=== PATIENT | male | born 1995 | race Caucasian/White ===

== ENCOUNTER 2018-08-02 14:44 | Emergency (ER) | payer SELFPAY ==
[2018-08-02] MEDS ORDERED: KETOROLAC TROMETHAMINE INJ/PF 30 MG/1 ML SDV IM ONE (15:30)
--- NOTE | 2018-08-02 15:32 | ER Document Report ---
ED Medical Screen (RME) - General Chief Complaint: Chest Pain Stated Complaint: LIGHT HEADED,LEFT ARM/SHOULDER PAIN Time Seen by Provider: 08/02/18 15:25 - HPI Notes: 08/02/18 15:31 Patient is a 22-year-old male with no significant past medical history presents complaining of left lateral chest/axilla area with some tightness to his upper mid chest going up into his neck a couple hours ago that has since improved and resolved. Patient states that he did have associated nausea at that time without vomiting. Patient does report on occasion noticing a lymph node being swollen in his neck over the past couple weeks, but is not currently inflamed. He is eating and drinking without difficulty. Denies BROTHERS, fever, neck pain, URI, SOB, Abd pain, dysuria, back pain, or rash. I have treated and performed a rapid initial assessment of this patient. A comprehensive ED assessment and evaluation of the patient, analysis of test results and completion of medical decision making process will be conducted by additional ED providers. PHYSICAL EXAMINATION: GENERAL: Well-appearing, well-nourished and in no acute distress. A&Ox4. Answers questions appropriately. Neck: no obvious lymphadenopathy. LUNGS: Breath sounds clear to auscultation bilaterally and equal. No wheezes rales or rhonchi. HEART: Regular rate and rhythm without murmurs, rubs, gallops. Extremities: No cyanosis, clubbing, or edema b/l. NEUROLOGICAL: Normal speech, normal gait. PSYCH: Normal mood, normal affect. - Related Data Allergies/Adverse Reactions: amoxicillin Allergy (Verified 08/02/18 14:49) Past Medical History - Social History Frequency of alcohol use: None Drug Abuse: None Renal/ Medical History: Denies: Hx Peritoneal Dialysis Physical Exam - Vital signs Vitals: Temp Pulse Resp BP Pulse Ox 98.9 F 70 16 129/77 H 99 08/02/18 15:00 08/02/18 15:00 08/02/18 15:00 08/02/18 15:00 08/02/18 15:00 Course - Vital Signs Vital signs: Temp Pulse Resp BP Pulse Ox 98.9 F 70 16 129/77 H 99 08/02/18 15:00 08/02/18 15:00 08/02/18 15:00 08/02/18 15:00 08/02/18 15:00
--- NOTE | 2018-08-02 16:11 | RADIOLOGY REPORT (SQ) ---
EXAM DESCRIPTION: CHEST SINGLE VIEW COMPLETED DATE/TIME: 08/02/2018 3:49 pm REASON FOR STUDY: left lateral chest pain COMPARISON: None. NUMBER OF VIEWS: One view. TECHNIQUE: Single frontal radiographic view of the chest acquired. LIMITATIONS: None. FINDINGS: LUNGS AND PLEURA: No opacities, masses or pneumothorax. No pleural effusion. MEDIASTINUM AND HILAR STRUCTURES: No masses. Contour normal. HEART AND VASCULAR STRUCTURES: Heart normal in size. Normal vasculature. BONES: No acute findings. HARDWARE: None in the chest. OTHER: No other significant finding. IMPRESSION: NO SIGNIFICANT RADIOGRAPHIC FINDING IN THE CHEST. TECHNICAL DOCUMENTATION: JOB ID: [id number] [employer]- All Rights Reserved Reading location - IP/workstation name: [email or web address]
[2018-08-02 16:47] LABS: ABSOLUTE EOSINOPHILS # (AUTO) 0.3 10^3/uL (0.0-0.6); ABSOLUTE MONOCYTES (AUTO) 0.8 10^3/uL (0.1-1.4); ABSOLUTE NEUT (AUTO) 7.2 10^3/uL (1.7-8.2); BASOPHILS % (AUTO) 0.3 % (0-2); EOSINOPHILS % (AUTO) 2.6 % (0-6); HEMATOCRIT 44.7 % (37.9-51.0); HEMOGLOBIN 15.4 g/dL (13.5-17.0); LYMPHOCYTES % (AUTO) 19.4 % (13-45); MEAN CORPUSCULAR HEMOGLOBIN 32.1 pg (27.0-33.4); MEAN CORPUSCULAR HGB CONC 34.4 g/dL (32.0-36.0); MEAN CORPUSCULAR VOLUME 93 fl (80-97); MONOCYTES % (AUTO) 7.3 % (3-13); PLATELET COUNT 300 10^3/uL (150-450); RED CELL DISTRIBUTION WIDTH 12.3 % (11.5-14.0); SEGMENTED NEUTROPHILS % (AUTO) 70.4 % (42-78); TOTAL CELLS COUNTED % (AUTO) 100 %; WHITE BLOOD COUNT 10.2 10^3/uL (4.0-10.5)
[2018-08-02 17:09] LABS: ALANINE AMINOTRANSFERASE 39 U/L (21-72); ALBUMIN 4.1 g/dL (3.5-5.0); ALKALINE PHOSPHATASE 57 U/L (38-126); ANION GAP 6 (5-19); ASPARTATE AMINO TRANSFERASE 26 U/L (17-59); BILIRUBIN,DIRECT 0.2 mg/dL (0.0-0.4); BILIRUBIN,TOTAL 0.3 mg/dL (0.2-1.3); BLOOD UREA NITROGEN 16 mg/dL (7-20); CALCIUM 9.2 mg/dL (8.4-10.2); CARBON DIOXIDE 24 mmol/L (22-30); CHLORIDE 109 mmol/L (98-107); CREATINE KINASE 90 U/L (55-170); GLUCOSE 86 mg/dL (75-110); POTASSIUM 4.5 mmol/L (3.6-5.0); SODIUM 139.4 mmol/L (137-145); TOTAL PROTEIN 6.3 g/dL (6.3-8.2)
--- NOTE | 2018-08-02 19:39 | ER Document Report ---
ED General - General Chief Complaint: Chest Pain Stated Complaint: LIGHT HEADED,LEFT ARM/SHOULDER PAIN Time Seen by Provider: 08/02/18 15:25 - HPI Notes: Patient is a 22-year-old male that presents to the emergency department for chief complaint of chest pain. Patient has multiple vague complaints but his primary concern is chest pain. He states this afternoon while driving he had a sharp pain on the his left side that radiated into his left axilla. The pain fluctuated in intensity for 45 minutes to an hour and then completely resolved. He denied associated nausea, vomiting and diaphoresis. Patient states that during that time he started to have a tingling sensation in both of his hands. He does not recall if he was breathing faster felt anxious. He also complains of lymph nodes in his neck that come and go. He states over the last few weeks he has noticed intermittent swelling of lymph nodes in his neck. He denies fevers or chills. He denies known recent illness. He does not have a primary care provider and denies chronic medical illness. Past Medical History: Negative Past Surgical History: Unknown intussusception surgery as a child Social History: Quit smoking yesterday, uses vaporized tobacco, Family History: Reviewed and noncontributory for presenting illness Allergies: Reviewed, see documented allergy list. REVIEW OF SYSTEMS: CONSTITUTIONAL : No fever No chills No diaphoresis No recent illness EENT: No vision changes No congestion No sore throat CARDIOVASCULAR: chest pain No palpitations RESPIRATORY: No shortness of breath No cough No difficulty breathing GASTROINTESTINAL: No abdominal pain No nausea No vomiting No diarrhea GENITOURINARY: No dysuria No hematuria No difficulty urinating MUSCULOSKELETAL: No back pain No leg pain No arm pain SKIN: No rashes No lesions LYMPHATIC: swollen, enlarged glands. NEUROLOGICAL: No lightheadedness No headache No weakness paresthesias PSYCHIATRIC: No anxiety No depression PHYSICAL EXAMINATION: Vital signs reviewed, nursing noted reviewed. GENERAL: Well-appearing, well-nourished and in no acute distress. HEAD: Atraumatic, normocephalic. EYES: Eyes appear normal, extraocular movements intact, sclera anicteric, conjunctiva are normal. ENT: nares patent, oropharynx clear without exudates. Moist mucous membranes. NECK: Normal range of motion, supple without lymphadenopathy LUNGS: Breath sounds clear to auscultation bilaterally and equal. No wheezes rales or rhonchi. HEART: Regular rate and rhythm without murmurs ABDOMEN: Soft, nontender, normoactive bowel sounds. No rebound, guarding, or rigidity. No masses appreciated. EXTREMITIES: Nontender, good range of motion, no pitting or edema. NEUROLOGICAL: No focal neurological deficits. Moves all extremities spont aneously Motor and sensory grossly intact on exam. PSYCH: Normal mood, normal affect. SKIN: Warm, Dry, normal turgor, no rashes or lesions noted on exposed skin - Related Data Allergies/Adverse Reactions: amoxicillin Allergy (Verified 08/02/18 14:49) Past Medical History - Social History Smoking Status: Former Smoker Frequency of alcohol use: None Drug Abuse: None Family History: Reviewed & Not Pertinent Patient has suicidal ideation: No Patient has homicidal ideation: No Renal/ Medical History: Denies: Hx Peritoneal Dialysis Physical Exam - Vital signs Vitals: Temp Pulse Resp BP Pulse Ox 98.9 F 70 16 129/77 H 99 08/02/18 15:00 08/02/18 15:00 08/02/18 15:00 08/02/18 15:00 08/02/18 15:00 Course - Re-evaluation Re-evalutation: 08/02/18 19:38 Vitals reviewed. Nursing notes reviewed. Patient has an unremarkable work-up today. He has no renal insufficiency or electrolyte derangement. He is not acutely anemic. His EKG shows no ectopy or ischemic changes. His chest x-ray shows no acute cardiopulmonary process including pneumothorax. Patient is currently asymptomatic. His symptoms were nonspecific and I am not currently concerned for ACS. He is PERC criteria negative and I do not suspect pulmonary embolism. Patient has no appreciable swollen lymph nodes currently and is otherwise hemodynamically stable. I did refer him to primary care for follow-up of his intermittent lymphadenopathy. Patient was counseled on return precautions and verbalized understanding. He is stable for discharge. Laboratory 08/02/18 08/02/18 08/02/18 16:34 16:34 16:34 WBC 10.2 RBC 4.80 Hgb 15.4 Hct 44.7 MCV 93 MCH 32.1 MCHC 34.4 RDW 12.3 Plt Count 300 Seg Neutrophils % 70.4 Lymphocytes % 19.4 Monocytes % 7.3 Eosinophils % 2.6 Basophils % 0.3 Absolute Neutrophils 7.2 Absolute Lymphocytes 2.0 Absolute Monocytes 0.8 Absolute Eosinophils 0.3 Absolute Basophils 0.0 Sodium 139.4 Potassium 4.5 Chloride 109 H Carbon Dioxide 24 Anion Gap 6 BUN 16 Creatinine 1.04 Est GFR ( Amer) > 60 Est GFR (Non-Af Amer) > 60 Glucose 86 Calcium 9.2 Total Bilirubin 0.3 Direct Bilirubin 0.2 Neonat Total Bilirubin Not Reportable Neonat Direct Bilirubin Not Reportable Neonat Indirect Bili Not Reportable AST 26 ALT 39 Alkaline Phosphatase 57 Creatine Kinase 90 Troponin I < 0.012 Total Protein 6.3 Albumin 4.1 Chest X-Ray 08/02/18 15:29 IMPRESSION: NO SIGNIFICANT RADIOGRAPHIC FINDING IN THE CHEST. - Vital Signs Vital signs: Temp Pulse Resp BP Pulse Ox 98.9 F 70 16 129/77 H 99 08/02/18 15:00 08/02/18 15:00 08/02/18 15:00 08/02/18 15:00 08/02/18 15:00 - Laboratory Result Diagrams: 08/02/18 16:34 08/02/18 16:34 Laboratory results interpreted by me: 08/02/18 16:34 Chloride 109 H - EKG Interpretation by Me Additional EKG results interpreted by me: 08/02/18 19:38 Interpreted by myself 1455: Normal sinus rhythm, rate 73, normal axis, no ectopy, no STEMI, no WPW Wellens or Brugada Discharge - Discharge Clinical Impression: Chest pain Qualifiers: Chest pain type: unspecified Qualified Code(s): R07.9 - Chest pain, unspecified Condition: Stable Disposition: HOME, SELF-CARE Instructions: Chest Pain of Unclear Cause ([facility]), Lymphadenopathy ([facility]) Additional Instructions: Please return to the emergency department if you have any worsening, or concern of your symptoms. Please return to the emergency department if you develop chest pain, difficulty breathing, severe abdominal pain, or ongoing vomiting. Please follow-up with your primary care physician in 2-3 days and any other recommended physicians. If prescribed, take all medications as directed. If you have any questions or concerns do not hesitate to return the emergency department for evaluation. Referrals: [facility] [Provider Group] - Follow up as needed [facility] [Provider Group] - Follow up as needed
[2018-08-02 19:53] VITALS: BP 120/72
--- NOTE | 2018-08-02 22:57 | EKG REPORT ---
SEVERITY:- NORMAL ECG - SINUS RHYTHM : Confirmed by: Veronica Mcleod 02-Aug-2018 22:56:38
== END 2018-08-02 19:51 | disposition home or self-care (01) ==
LOC: ER 14:44
DX: R07.9 Chest pain, unspecified (principal); M79.602 Pain in left arm; F41.9 Anxiety disorder, unspecified; F17.290 Nicotine dependence, other tobacco product, uncomplicated
CPT/HCPCS: 93005; 99285; 96372; 36415; 82550; 85025; 80053; 84484; 71045; 93010; J1885